=== PATIENT | female | born 1995 | race Hispanic/Latino ===

== ENCOUNTER 2022-05-29 04:27 | Inpatient (IN) | payer MEDICAID, OTHER ==
[2022-05-29 04:54] VITALS: BMI 28.7
[2022-05-29] MEDS: Lactated Ringer's 1,000 ML IV SCH ×3 (05:15→18:20)
[2022-05-29] MEDS ORDERED: Ondansetron PF 4 MG/2 ML Vial IVP PRN ×3 (05:30→22:40)
[2022-05-29] MEDS ORDERED: Acetaminophen 500 MG TAB PO PRN (05:30)
[2022-05-29] MEDS ORDERED: hydrALAZINE 20 MG/ML VIAL SLOW IVP PRN ×2 (05:30→22:40)
[2022-05-29] MEDS ORDERED: Promethazine HCl 25 MG/ML VIAL IM PRN ×3 (05:30→22:40)
[2022-05-29] MEDS ORDERED: Butorphanol Tartrate 1 MG/ML VIAL SLOW IVP PRN (05:30)
[2022-05-29] MEDS ORDERED: Lidocaine 1% (PF) 30 ML VIAL SC PRN (05:45)
[2022-05-29] MEDS ORDERED: Ibuprofen 800 MG TAB PO PRN (05:45)
[2022-05-29] MEDS ORDERED: Methylergonovine 0.2 MG/ML VIAL IM PRN (05:45)
[2022-05-29] MEDS ORDERED: Diphenoxylate HCl/Atropine Tablet PO PRN ×2 (05:45→22:40)
[2022-05-29 05:57] LABS: SARS-CoV-2 NAA Rapid Test Not Detected (NotDetected)
[2022-05-29 06:03] LABS: Hemoglobin 11.5 g/dL (12.0-15.5); Mean Corpuscular HGB CONC 34.7 g/dL (32.0-36.0); Mean Corpuscular Hemoglobin 28.9 pg (27.0-33.0); Mean Corpuscular Volume 83.2 fl (81.6-98.3); Mean Platelet Volume 9.1 fl (7.4-10.4); Platelet Count 209 10x3/uL (150-450); RBC Distribution Width 14.1 % (11.5-14.5); Red Blood Cell (RBC) Count 3.98 10x6/uL (3.90-5.03)
[2022-05-29] MEDS ORDERED: Fentanyl 2 mcg/Bup 0.1% Cadd 100 ML ONE (06:30)
[2022-05-29] MEDS ORDERED: Fentanyl 100 MCG/2 ML VIAL ONE (06:33)
[2022-05-29 06:44] LABS: HBSAg Index 0.18 S/CO (0-0.99); Hep B Surf Ag Non-Reactive S/CO (NonReactive); Syphilis Antibody Nonreactive (Nonreactive); Syphilis Antibody Index 0.03 S/CO (<1.00 Non-Reactive)
[2022-05-29] MEDS ORDERED: Acetaminophen 325 MG TAB PO PRN (07:02)
[2022-05-29] MEDS ORDERED: diphenhydrAMINE 50 MG/ML VIAL IVP PRN (07:02)
[2022-05-29] MEDS ORDERED: Moisturizing Cream (Eucerin) 113 GM JAR TOP PRN (07:02)
[2022-05-29] MEDS ORDERED: ePHEDrine Sulfate 50 MG/10 ML VIAL SLOW IVP PRN (07:02)
[2022-05-29] MEDS ORDERED: Lactated Ringer's 500 ML IV PRN (07:02)
[2022-05-29] MEDS ORDERED: Naloxone HCl 0.4 mg/ml Vial IVP PRN ×2 (07:02)
[2022-05-29] MEDS ORDERED: Communication Order-Pharmacy FS SCH (07:15)
[2022-05-29] MEDS ORDERED: Fentanyl 2 mcg/Bupivacaine 0.1% Cassette 100 ML EPIDURAL SCH (07:15)
[2022-05-29] MEDS ORDERED: Bupivacaine/Epinephrine 0.25% 30 ML VIAL ONE (08:00)
[2022-05-29] MEDS ORDERED: Dexmedetomidine 200 MCG/2 ML VIAL ONE (10:11)
[2022-05-29] MEDS ORDERED: Calcium Carbonate 500 MG ChewTAB PO SCH (10:45)
[2022-05-29] MEDS: NS w/ Oxytocin 30 units 500 ML IVPB SCH ×2 (14:25→16:02)
[2022-05-29] MEDS ORDERED: Misoprostol 200 MCG TAB PO SCH (16:45)
[2022-05-29] MEDS: Misoprostol 200 MCG TAB RC PRN ×2 (16:58→17:59)
[2022-05-29] MEDS: Carboprost 250 MCG/ML AMP IM PRN ×3 (17:03→20:17)
[2022-05-29] MEDS ORDERED: Tranexamic Acid 1,000 MG/10 ML VIAL ONE (17:20)
[2022-05-29] MEDS: Tranexamic Acid 1,000 MG in Sodium Chloride 0.9% 100 ML IVPB SCH ×2 (17:25→18:10)
[2022-05-29] MEDS ORDERED: Misoprostol 200 MCG TAB PR SCH (17:45)
[2022-05-29] MEDS ORDERED: Misoprostol 200 MCG TAB ONE (17:57)
[2022-05-29] MEDS ORDERED: Dexamethasone 4 mg/ml Vial ONE (19:48)
[2022-05-29] MEDS ORDERED: PHENYLEPHRINE-NS 100 MCG/ML 10 ML SYRINGE ONE ×2 (19:48→20:22)
[2022-05-29] MEDS ORDERED: Ondansetron PF 4 MG/2 ML Vial ONE (19:48)
[2022-05-29] MEDS ORDERED: CEFAZOLIN 1 GM VIAL ONE (19:48)
[2022-05-29] MEDS ORDERED: ePHEDrine Sulfate 50 MG/10 ML VIAL ONE (20:12)
[2022-05-29] MEDS ORDERED: Diphenoxylate HCl/Atropine Tablet PO SCH (20:30)
[2022-05-29] MEDS ORDERED: Fentanyl 100 MCG/2 ML VIAL SLOW IVP PRN (20:31)
[2022-05-29] MEDS ORDERED: Meperidine HCl/PF 25 MG/ML VIAL SLOW IVP PRN (20:31)
[2022-05-29] MEDS ORDERED: Ondansetron HCl/PF 4 MG/2 ML Vial IVP PRN (20:31)
[2022-05-29 20:51] LABS: Hemoglobin 10.5 g/dL (12.0-15.5); Mean Corpuscular HGB CONC 33.8 g/dL (32.0-36.0); Mean Corpuscular Hemoglobin 28.6 pg (27.0-33.0); Mean Corpuscular Volume 84.7 fl (81.6-98.3); Platelet Count 180 10x3/uL (150-450); RBC Distribution Width 14.2 % (11.5-14.5); Red Blood Cell (RBC) Count 3.67 10x6/uL (3.90-5.03); White Blood Cell (WBC) Count 13.7 10x3/uL (3.5-10.5)
[2022-05-29] MEDS: metroNIDAZOLE 500 MG in Premix Bag 1 BAG IVPB SCH (20:55)
[2022-05-29] MEDS ORDERED: Bisacodyl 10 MG SUPP PR PRN (22:40)
[2022-05-29] MEDS ORDERED: Benzocaine-Menthol 82.5 ML CAN TOP PRN (22:40)
[2022-05-29] MEDS ORDERED: Lanolin Ointment 7 GM TUBE TOP PRN (22:40)
[2022-05-29] MEDS ORDERED: diphenhydrAMINE 25 MG CAP PO PRN (22:40)
[2022-05-29] MEDS ORDERED: Boostrix 0.5 ML (Tdap) VIAL (>/=7 yrs of age) IM ONE (22:40)
[2022-05-29] MEDS ORDERED: HYDROcodone/Acetaminophen 5/325 mg Tablet PO PRN ×2 (22:40)
[2022-05-29] MEDS ORDERED: Milk Of Magnesia 30 ML UDCUP PO PRN (22:40)
[2022-05-29] MEDS ORDERED: Ferrous Sulfate 325 MG TAB PO SCH (23:15)
[2022-05-29] MEDS ORDERED: Docusate 100 MG CAP PO SCH (23:30)
[2022-05-29] MEDS ORDERED: Ibuprofen 800 MG TAB PO SCH (23:59)
[2022-05-30] MEDS: metroNIDAZOLE 500 MG in Premix Bag 1 BAG IVPB SCH ×3 (04:50→20:16)
[2022-05-30] MEDS: CEFAZOLIN 2 GM in Sodium Chloride 0.9% 100 ML IVPB SCH ×3 (06:02→21:26)
[2022-05-30] MEDS: Ibuprofen 800 MG TAB PO SCH ×3 (06:02→21:25)
[2022-05-30] MEDS: Docusate 100 MG CAP PO SCH ×2 (08:14→20:16)
[2022-05-30] MEDS: Prenatal Vitamin 1 TAB PO SCH (08:14)
[2022-05-30] MEDS: Ferrous Sulfate 325 MG TAB PO SCH ×2 (08:16→15:38)
[2022-05-31] MEDS: Ibuprofen 800 MG TAB PO SCH (05:36)
[2022-05-31] MEDS: metroNIDAZOLE 500 MG in Premix Bag 1 BAG IVPB SCH (05:37)
[2022-05-31] MEDS: Ferrous Sulfate 325 MG TAB PO SCH (07:28)
[2022-05-31 07:44] VITALS: BP 97/52; TEMP 98
[2022-05-31] MEDS: Docusate 100 MG CAP PO SCH (09:15)
[2022-05-31] MEDS: Prenatal Vitamin 1 TAB PO SCH (09:15)
== END 2022-05-31 11:00 | disposition home or self-care (01) | DRG 806 ==
LOC: CSHLD/OP 04:27 → CSHLD 05:17 → CSHPP 05-30 00:25
PROVIDERS: ADMIT Family Medicine; ATTEND Family Medicine
PROC: 10E0XZZ Delivery of Products of Conception, External Approach (ICD-10-PCS; principal; 2022-05-29)
PROC: 10D17Z9 Manual Extraction of Products of Conception, Retained, Via Natural or Artificial Opening (ICD-10-PCS; 2022-05-29)
PROC: 10907ZC Drainage of Amniotic Fluid, Therapeutic from Products of Conception, Via Natural or Artificial Opening (ICD-10-PCS; 2022-05-29)
PROC: 0HQ9XZZ Repair Perineum Skin, External Approach (ICD-10-PCS; 2022-05-29)
PROC: 0UQMXZZ Repair Vulva, External Approach (ICD-10-PCS; 2022-05-29)
DX: O69.81X0 Labor and delivery complicated by cord around neck, without compression, not applicable or unspecified (principal); O72.2 Delayed and secondary postpartum hemorrhage; Z37.0 Single live birth; Z3A.40 40 weeks gestation of pregnancy; Z20.822 Contact with and (suspected) exposure to COVID-19; O71.82 Other specified trauma to perineum and vulva; O70.0 First degree perineal laceration during delivery
CPT/HCPCS: 36415; 51702; 85027; 86780; 86850; 86900; 86901; 87340; 99285; J0595; J0690; J1100; J2210; J2405; J2590; J3490; J7120; U0002